=== PATIENT | male | born 1975 | race Caucasian/White ===

== ENCOUNTER 2020-09-14 23:08 | Emergency (ER) | payer OTHER ==
[~2020-09-14 23:08] MED LIST: CLEOCIN HCL300 MG PO; KEPPRA750 MG PO; PRILOSEC OTC20 MG PO; ZOFRAN4 MG PO; ZYVOX600 MG PO
[2020-09-15 00:52] LABS: HEMOGLOBIN 16.2 gm/dl (14.0-17.5); RED BLOOD COUNT 5.02 M/UL (4.20-5.50); WHITE BLOOD COUNT 8.3 K/UL (4.5-11.0)
[2020-09-15 01:04] LABS: BUN/CREATININE RATIO 23 (0-10)
[2020-09-15] MEDS ORDERED: ZOFRAN ODT 4 MG4 MG PO (01:27)
== END 2020-09-15 01:37 | disposition home or self-care (01) ==
LOC: ER1 23:08
PROVIDERS: Family Medicine
DX: R11.2 Nausea with vomiting, unspecified (principal); R19.7 Diarrhea, unspecified; R10.9 Unspecified abdominal pain; J44.9 Chronic obstructive pulmonary disease, unspecified; F32.9 Major depressive disorder, single episode, unspecified; F17.200 Nicotine dependence, unspecified, uncomplicated; Z86.19 Personal history of other infectious and parasitic diseases; Z79.899 Other long term (current) drug therapy; Z88.5 Allergy status to narcotic agent; Z20.828 Contact with and (suspected) exposure to other viral communicable diseases
CPT/HCPCS: 80053; 83690; 85025; 96374; 99284; J2405; J7030; U0003